=== PATIENT | male | born 1955 | race Caucasian/White ===

== ENCOUNTER 2017-11-06 08:01 | Day surgery (SDC) | payer OTHER ==
--- NOTE | 2017-11-06 07:07 | PDHPUP ---
History & Physical Update H&P update statement: This history and physical update is based on an assessment of the patient which was completed after admission or registration (within 24 hours), but prior to the surgery/procedure. H&P update: changes noted (large abrasion on lateral side, operative side noted after spinal ) H&P changes: Large abrasion on hip noted after spinal. case cancelled
[~2017-11-06 08:01] MED LIST: BUPI/epINEPH/KETOROLAC IU ONE; ROPIVACAINE 0.2% 80 MG, EPINEPHrine 0.2 MG, KETOROLAC TROMETHAMINE 30 MG in SYRINGE 0 ML IU ONE; TRANEXAMIC ACID 3,000 MG in NS (SYRINGE) 50 ML IRR ONE
[2017-11-06] MEDS ORDERED: TRANEXAMIC ACID 3,000 MG/50 ML BAG IRR ONE (08:02)
[2017-11-06] MEDS ORDERED: DEXAMETHASONE 4 MG/ML VIAL IVP ONE (08:46)
[2017-11-06] MEDS ORDERED: ACETAMINOPHEN 325 MG TAB PO ONE (08:46)
[2017-11-06] MEDS ORDERED: ceFAZolin 2 GM/SWFI 2 GM/20 ML SYR IVP ONE (08:46)
[2017-11-06] MEDS ORDERED: FAMOTIDINE 20 MG TAB PO ONE (08:46)
[2017-11-06] MEDS ORDERED: LR 1,000 ML IV ONE (08:47)
--- NOTE | 2017-11-06 08:50 | PDANEPAE ---
ANE History of Present Illness Healthy 62 yo male with R hip OA for R ELIAZAR. ANE Past Medical History - Cardiovascular History Hx Hypertension: No Hx Arrhythmias: No Hx Chest Pain: No Hx Coronary Artery / Peripheral Vascular Disease: No Hx CHF / Valvular Disease: No Hx Palpitations: No - Pulmonary History Hx COPD: No Hx Asthma/Reactive Airway Disease: No Hx Recent Upper Respiratory Infection: No Hx Oxygen in Use at Home: No Hx Sleep Apnea: No - Neurologic History Hx Cerebrovascular Accident: No Hx Seizures: No Hx Dementia: No - Endocrine History Hx Diabetes: No Hypothyroid: No Hyperthyroid: No Obesity: no - Renal History Hx Renal Disorders: No - Liver History Hx Hepatic Disorders: No - Neurological & Psychiatric Hx Hx Neurological and Psychiatric Disorders: No - Cancer History Hx Cancer: No - Congenital Disorder History Hx Congenital Disorders: No - GI History Hx Gastrointestinal Disorders: No - Other Health History Other Health History: none - Chronic Pain History Chronic Pain: No - Surgical History Prior Surgeries: stem cell injection. 2015 hammer toe, bone spur fixed ANE Review of Systems Review of Systems: - Exercise capacity METS (RN): 6 METS - Systems Constitutional: Reports: no symptoms Cardiac: Reports: no symptoms Respiratory: Reports: no symptoms ANE Patient History - Allergies Allergies/Adverse Reactions: No Known Allergies Allergy (Verified 10/18/17 11:04) - Home Medications Home Medications: NK [No Known Home Meds] 10/18/17 [Last Taken Unknown] - NPO status NPO Since - Liquids (Date): 11/06/17 NPO Since - Liquids (Time): 07:00 NPO Since - Solids (Date): 11/05/17 - Anes Hx Anes Hx: no prior problems - Smoking Hx Smoking Status: Never smoked Marijuana use: No - Alcohol Use Alcohol Use: Occasionally (6/week) - Family Anes Hx Family Anes Hx: neg - N/A Family Hx Anesthesia Complications: none ANE Labs/Vital Signs - Labs - CBC HGB: 16 HCT: 46 Platelet Count: 185 - Vital Signs Vital Signs: reviewed preoperatively; see RN documention for details Height: 182.88 cm Weight: 88.451 kg ANE Physical Exam - Airway Neck exam: FROM Mallampati Score: Class 2 Mouth exam: normal dental/mouth exam - Pulmonary Pulmonary: clear to auscultation - Cardiovascular Cardiovascular: irregularly irregular (irregularly irregular HR- placed on 3 lead EKG which revealed PVCs q 3-7 beats and occ PACs) - ASA Status ASA Status: II ANE Anesthesia Plan Anesthesia Plan: spinal
[2017-11-06] MEDS: LIDOCAINE 1% 2 ML INJ ID PRN ×2 (09:24→09:27)
[2017-11-06] MEDS ORDERED: LIDOCAINE 2% 5 ML SDV ONE (10:03)
[2017-11-06] MEDS ORDERED: PROPOFOL/EMULSION 500 MG/50 ML BOTTLE IV ONE (10:03)
[2017-11-06] MEDS ORDERED: fentaNYL 100 MCG/2 ML INJ ONE (10:03)
[2017-11-06] MEDS ORDERED: ACETAMINOPHEN 500 MG TAB PO PRN (10:39)
[2017-11-06] MEDS ORDERED: NALOXONE HCL 0.4 MG/ML INJ IVP PRN (10:39)
[2017-11-06] MEDS ORDERED: LR 500 ML IV PRN (10:39)
--- NOTE | 2017-11-06 10:41 | POSTANESTH ---
Post Anesthetic Evaluation Cardiovascular Status: Normal, Stable Respiratory Status: Normal, Stable Level of Consciousness/Mental Status: Can Participate in Eval, Alert and Oriented Pain Control: Adequate, Prn Tx Ordered Nausea/Vomiting Control: Adequate, Prn Tx Ordered Complications Possibly Related to Anesthesia: None Noted
[2017-11-06 16:07] VITALS: BP 123/83
== END 2017-11-06 16:05 | disposition home or self-care (01) ==
LOC: FSGY 08:01 → UNDOADMIN 08:01 → F3N 08:01 → EDSTATUS 12:15 → FSGY 16:05
PROVIDERS: ATTEND Orthopaedic Surgery
DX: M16.11 Unilateral primary osteoarthritis, right hip (principal); Z53.09 Procedure and treatment not carried out because of other contraindication
CPT/HCPCS: J0171; J0690; J1100; J1885; J2704; J3010

== ENCOUNTER 2017-12-04 06:03 | Inpatient (IN) | payer OTHER ==
[2017-12-04] MEDS ORDERED: LR 1,000 ML IV ONE (06:14)
[2017-12-04] MEDS ORDERED: LIDOCAINE 1% 2 ML INJ ID PRN (06:14)
--- NOTE | 2017-12-04 06:19 | PDANEPAE ---
ANE History of Present Illness 62 yo male with R hip OA for R ELIAZAR. ANE Past Medical History - Cardiovascular History Hx Hypertension: No Hx Arrhythmias: Yes Hx Chest Pain: No Hx Coronary Artery / Peripheral Vascular Disease: No Hx CHF / Valvular Disease: No Hx Palpitations: No Cardiovascular History Comment: multi PVCs and PACs noted last month when pt came for R ELIAZAR that was cancelled for scratches on operative side. - Pulmonary History Hx COPD: No Hx Asthma/Reactive Airway Disease: No Hx Recent Upper Respiratory Infection: No Hx Oxygen in Use at Home: No Hx Sleep Apnea: No Sleep Apnea Screening Result - Last Documented: Negative - Neurologic History Hx Cerebrovascular Accident: No Hx Seizures: No Hx Dementia: No - Endocrine History Hx Diabetes: No Hypothyroid: No Hyperthyroid: No Obesity: no - Renal History Hx Renal Disorders: No - Liver History Hx Hepatic Disorders: No - Neurological & Psychiatric Hx Hx Neurological and Psychiatric Disorders: No - Cancer History Hx Cancer: No - Congenital Disorder History Hx Congenital Disorders: No - GI History Hx Gastrointestinal Disorders: No - Other Health History Other Health History: OA-R HIP PAIN - Chronic Pain History Chronic Pain: Yes (R HIP) - Surgical History Prior Surgeries: stem cell injection -OA R HIP. 2015 hammer toe, bone spur fixed-BILAT ANE Review of Systems Review of Systems: - Exercise capacity METS (RN): 5 METS - Systems Constitutional: Reports: no symptoms Cardiac: Reports: no symptoms Respiratory: Reports: no symptoms Muscolosketal: Reports: joint pain ANE Patient History - Allergies Allergies/Adverse Reactions: No Known Allergies Allergy (Verified 11/25/17 14:01) - Home Medications Home Medications: celeCOXIB [Celebrex (*)] 200 mg PO DAILY PRN 12/02/17 [Last Taken Unknown] - NPO status NPO Status: no food or drink >8 hours - Anes Hx Anes Hx: no prior problems - Smoking Hx Smoking Status: Never smoked Marijuana use: No - Alcohol Use Alcohol Use: Occasionally (8/week) - Family Anes Hx Family Anes Hx: neg - N/A Family Hx Anesthesia Complications: none ANE Labs/Vital Signs - Labs - CBC HGB: 16 HCT: 46 Platelet Count: 185 - Vital Signs Vital Signs: reviewed preoperatively; see RN documention for details Height: 182.88 cm Weight: 87.543 kg ANE Physical Exam - Airway Neck exam: FROM Mallampati Score: Class 2 Mouth exam: normal dental/mouth exam - Pulmonary Pulmonary: no respiratory distress - Cardiovascular Cardiovascular: irregularly irregular (less irregular than last month, but still erratic with extra heart beats) - ASA Status ASA Status: II ANE Anesthesia Plan Anesthesia Plan: spinal
--- NOTE | 2017-12-04 07:16 | PDHPUP ---
History & Physical Update H&P update statement: This history and physical update is based on an assessment of the patient which was completed after admission or registration (within 24 hours), but prior to the surgery/procedure. H&P update: H&P reviewed & patient examined, no change in patient's condition since H&P completed
[2017-12-04] MEDS ORDERED: DEXAMETHASONE 4 MG/ML VIAL IVP ONE (07:27)
[2017-12-04] MEDS ORDERED: ACETAMINOPHEN 325 MG TAB PO ONE (07:27)
[2017-12-04] MEDS ORDERED: FAMOTIDINE 20 MG TAB PO ONE (07:27)
[2017-12-04] MEDS ORDERED: TRANEXAMIC ACID 3,000 MG in NS (SYRINGE) 50 ML IRR ONE (07:27)
[2017-12-04] MEDS ORDERED: ROPIVACAINE 0.2% 80 MG, EPINEPHrine 0.2 MG, KETOROLAC TROMETHAMINE 30 MG in SYRINGE 0 ML IU ONE (07:27)
[2017-12-04] MEDS ORDERED: ceFAZolin 2 GM/SWFI 2 GM/20 ML SYR IVP ONE (07:45)
[2017-12-04] MEDS ORDERED: DEXAMETHASONE 4 MG/ML VIAL ONE (08:02)
[2017-12-04] MEDS ORDERED: LIDOCAINE 2% 5 ML SDV ONE (08:02)
[2017-12-04] MEDS ORDERED: fentaNYL 100 MCG/2 ML INJ ONE (08:02)
[2017-12-04] MEDS ORDERED: PROPOFOL/EMULSION 500 MG/50 ML BOTTLE IV ONE (08:02)
[2017-12-04] MEDS ORDERED: PROPOFOL 200 MG/20 ML VIAL ONE (09:01)
[2017-12-04] MEDS ORDERED: BISACODYL 10 MG SUPP PR PRN (09:31)
[2017-12-04] MEDS ORDERED: PROMETHAZINE HCL 25 MG SUPPR PR PRN (09:31)
[2017-12-04] MEDS ORDERED: METOCLOPRAMIDE 10 MG/2 ML VIAL IVP PRN (09:31)
[2017-12-04] MEDS ORDERED: DIPHENOXYLATE/ATROPINE LOMOTIL 1 TAB PO PRN (09:31)
[2017-12-04] MEDS ORDERED: PROMETHAZINE HCL 25 MG/ML INJ IVP PRN ×2 (09:31→09:33)
[2017-12-04] MEDS ORDERED: MAGNESIUM HYDROXIDE 30 ML UDCUP PO PRN (09:31)
[2017-12-04] MEDS ORDERED: oxyCODONE IR 5 MG TAB PO PRN ×2 (09:31→09:33)
[2017-12-04] MEDS ORDERED: POLYETHYLENE GLYCOL 3350 17 GM PKT PO PRN (09:31)
[2017-12-04] MEDS ORDERED: CYCLOBENZAPRINE 10 MG TAB PO PRN (09:31)
[2017-12-04] MEDS ORDERED: diphenhydrAMINE 25 MG CAP PO PRN (09:31)
[2017-12-04] MEDS ORDERED: ONDANSETRON DISINTEGRATING 4 MG TAB PO PRN (09:31)
[2017-12-04] MEDS ORDERED: LACTULOSE 20 GM/30 ML UDCUP PO PRN (09:31)
[2017-12-04] MEDS ORDERED: TEMAZEPAM 15 MG CAP PO PRN (09:31)
[2017-12-04] MEDS ORDERED: ONDANSETRON 4 MG/2 ML VIAL IVP PRN ×2 (09:31→09:33)
--- NOTE | 2017-12-04 09:31 | POSTOPPROG ---
Post Op Note Date of Operation: 12/04/17 Surgeon: Gerard Fountain Heat [employer] Teacher: daisha fountain Anesthesiologist: dr. hoff Anesthesia: Spinal Pre-op Diagnosis: R hip OA Post-op Diagnosis: same Indication: right hip pain Procedure: R ELIAZAR ant approach Findings: severe hip OA Inf/Abcess present in the surg proc area at time of surgery?: No EBL: 100-500
[2017-12-04] MEDS ORDERED: NALOXONE HCL 0.4 MG/ML INJ IVP PRN (09:33)
[2017-12-04] MEDS ORDERED: fentaNYL 100 MCG/2 ML INJ IVP PRN (09:33)
[2017-12-04] MEDS ORDERED: ACETAMINOPHEN 500 MG TAB PO PRN (09:33)
--- NOTE | 2017-12-04 09:35 | POSTANESTH ---
Post Anesthetic Evaluation Cardiovascular Status: Normal, Stable Respiratory Status: Normal, Stable Level of Consciousness/Mental Status: Can Participate in Eval, Mildly Sleepy, Arousable Pain Control: Adequate, Prn Tx Ordered Nausea/Vomiting Control: Adequate, Prn Tx Ordered Complications Possibly Related to Anesthesia: None Noted (Pt can move bilateral feet, motor portion of SAB wearing off.)
[2017-12-04] MEDS ORDERED: LR 1,000 ML IV SCH (10:00)
--- NOTE | 2017-12-04 11:39 | PDMN ---
Medical Necessity Medical necessity: Pt meets INPT criteria per and [facility] S-560 [facility]
[2017-12-04] MEDS ORDERED: ACETAMINOPHEN 325 MG TAB PO SCH (12:00)
[2017-12-04] MEDS ORDERED: ceFAZolin 2 GM/DEXTROSE 100 ML IV SCH (14:00)
[2017-12-04 15:43] VITALS: BP 149/91
[2017-12-04] MEDS ORDERED: ceFAZolin 2 GM/SWFI 2 GM/20 ML SYR IVP SCH (16:30)
[2017-12-04] MEDS ORDERED: SENNOSIDES/DOCUSATE SODIUM TAB PO SCH (21:00)
[2017-12-04] MEDS ORDERED: FAMOTIDINE 20 MG TAB PO SCH (21:00)
[2017-12-04] MEDS ORDERED: ASPIRIN 81 MG CHEWABLE TAB PO SCH (21:00)
--- NOTE | 2017-12-05 09:17 | GDS ---
[f rep st] DISCHARGE SUMMARY ADMISSION DIAGNOSIS: Right hip osteoarthritis. DISCHARGE DIAGNOSIS: Right hip osteoarthritis. PROCEDURE: Right total hip arthroplasty. VTE PROPHYLAXIS: Recommend aspirin 81 mg twice daily for 4 weeks. BRIEF DESCRIPTION OF HOSPITAL STAY: Patient was admitted for an elective joint arthroplasty. The pa marlen tolerated the procedure well and has passed physical therapy. The patient was given appropriat e antibiotic prophylaxis and venous thromboembolism prophylaxis. The patient's pain was well control led on oral pain medication, patient was holding down food, and had urinated. Decision was made to d ischarge the patient. The patient was given post-operative prescriptions pre-operatively. PLAN: To follow up as scheduled in Dr. Barrow's office on December 26 at 2 p.m. /[id number]/MODL
--- NOTE | 2017-12-05 22:51 | GOP ---
[f rep st] OPERATIVE REPORT DATE OF OPERATION: 12/04/2017 SURGEON: Any Barrow MD PREOPERATIVE DIAGNOSIS: Right hip osteoarthritis. POSTOPERATIVE DIAGNOSIS: Right hip osteoarthritis. PROCEDURE PERFORMED: Right total hip arthroplasty with navigation. FINDINGS: ESTIMATED BLOOD LOSS: 200 cc. INDICATIONS: The patient has progressively worsening arthritis of the hip which has failed medical m anagement. The patient understands the treatment option including continued non-operative care and h as selected surgical intervention. The patient has decided to undergo total hip arthroplasty via the direct anterior approach understanding the risks of the procedure including, but not limited to, slim rovascular injury, infection, persistent pain, component wear and loosening, deep venous thrombosis, pulmonary embolism, limb length inequality (including dislocation), and intraoperative fractures. DESCRIPTION OF PROCEDURE: After proper identification of the patient including verification and anna ing the surgical site, the patient was brought to the operating room and placed in the supine positio n. All bony prominences were well padded. Anesthesia was induced without complication and intraveno us prophylactic antibiotics were administered prior to skin incision. After prepping and draping in the usual sterile fashion, attention was drawn to the contralateral pel vis for attachment of the computer navigation tracker. Three percutaneous incisions were made over t he iliac crest and the pelvic tracker was affixed using threaded 3.5 mm pins yielding excellent fixat ion. Using computer navigation the patient's leg length and topographical pelvic anatomy was registe red without complication. Attention was then drawn to surgical exposure of the hip. An incision was made with a #10 Bard Sabrina r blade starting 3 cm lateral and 3 cm distal to the anterior superior iliac spine measuring 8 cm to 10 cm and coursing distally toward the greater trochanter. The skin and subcutaneous tissues were di vided sharply down the fascia belinda. The fascia belinda was incised in line with the skin incision expos ing the underlying tensor fascia belinda muscle. This muscle was bluntly elevated from the fascia and t he first extracapsular Cobra retractor was placed laterally at the junction of the superior femoral n rustam and greater trochanter. The lateral femoral circumflex vessels were identified, cauterized and d ivided with the Aquamantys bipolar cautery. The deep investing fascia of the TFL was divided to allo w proper mobilization of the muscle preventing damage during retraction. The reflected head of the r ectus femoris muscle was elevated off the anterior hip capsule and a medial Cobra retractor was place d just proximal to the lesser trochanter. The anterior capsulotomy was made sharply from the superolateral acetabulum to the saddle junction of the superior femoral neck and greater trochanter, then coursing inferomedial towards the lesser troc hanter. The retractors were then placed in the intracapsular position for femoral neck osteotomy. C orresponding to preoperative templating the osteotomy was made with the oscillating saw protecting th e greater trochanter and soft tissues. The femoral head was removed from the acetabulum with a corks crew and confirmed to be severely arthritic with exposed bone, deformity and osteophytes. Similar fi nding were confirmed in the acetabulum. The Arch table extension was then placed in 40 degrees external rotation. Attention was then drawn t o the acetabular preparation. After placement of the anterior and posterior Cobra retractors outside the labrum and intrascapular the circumferential labrum was removed sharply. The foveal contents we re then removed and hemostasis obtained with cautery. The anatomy of the acetabulum was then registe red using computer navigation. The first reamer selected was sized using the removed femoral head. Reaming began with robotic jose t at 40 degrees of abduction and 20 degrees of anteversion using computer navigation. Reaming ceased 0 mm less than the definitive acetabular component. The final acetabular component was inserted usi ng the computer to achieve proper orientation yielding excellent purchase and stability in the acetab ulum. The final acetabular liner was then placed and its seating confirmed. Attention was then turned to the femur. The Arch table extension was placed in extension and adducti on delivering the osteotomized femoral neck into the wound. A 2-pronged femoral elevator was placed at the calcar and another at the tip of the greater trochanter. The posterolateral capsule was relea sed with cautery allowing mobilization of the femur lateral and anterior for preparation. The house painting instructor al rotators were visualized and preserved. A curette and rongeur were used to open the starting poin t for broaching. Serial broaching started with the #0 broach and ended with the broach that exhibited excellent fit in the proximal femur. A change in pitch during mallet strikes was accompanied by the inability to advance the broach any further. The trial reduction was performed and fluoroscopic chalo igation was utilized to check limb length. Adjustments were made to equalize limb length accordingly . After the final trials were accepted they were removed and the wound was copiously lavaged. The femo ral component was seated to the same depth as the final broach and the femoral head was impacted onto the clean trunnion. The hip was then reduced for the final time and once more fluoroscopic navigati on used to check that limb length equality was achieved. The wound was irrigated and closed in layers, the fascia belinda with 2-0 Quill, the subcutaneous tissue with a 2-0 Quill, and the skin with Dermabond, including the small incisions for computer navigation . Sterile dressings were applied. Final sharps and sponge counts were accurate. The patient was th en transferred to a hospital bed and brought to the recovery room in stable condition. IMPLANTS: Accolade II size 6 at 127, acetabular component Trident II 60 mm head, Biolox Delta 36 mm, +5. Liner is a Trident X3 36 mm. /[id number]/MODL
== END 2017-12-04 17:52 | disposition home or self-care (01) | DRG 470 ==
LOC: FSGY 06:03 → F3E 09:31 → F3N 09:55 → EDSTATUS 12:15
PROVIDERS: ADMIT Orthopaedic Surgery; ATTEND Orthopaedic Surgery
DX: M16.11 Unilateral primary osteoarthritis, right hip (principal)
CPT/HCPCS: 97161-GP; J0171; J0690; J1100; J1885; J2704; J2795; J3010

== ENCOUNTER 2017-12-23 12:37 | Inpatient (IN) | payer OTHER ==
[2017-12-23] MEDS ORDERED: LR 1,000 ML IV ONE (12:50)
[2017-12-23] MEDS ORDERED: LIDOCAINE 1% 2 ML INJ ID PRN (12:50)
[2017-12-23] MEDS ORDERED: ceFAZolin 2 GM/DEXTROSE 100 ML IV ONE (13:42)
[2017-12-23] MEDS ORDERED: ROPIVACAINE 0.2% 80 MG, EPINEPHrine 0.2 MG, KETOROLAC TROMETHAMINE 30 MG in SYRINGE 0 ML IU ONE (13:42)
[2017-12-23] MEDS ORDERED: DEXAMETHASONE 4 MG/ML VIAL IVP ONE (13:42)
[2017-12-23] MEDS ORDERED: FAMOTIDINE 20 MG TAB PO ONE (13:42)
[2017-12-23] MEDS ORDERED: MIDAZOLAM 2 MG/2 ML VIAL IVP ONE (14:20)
--- NOTE | 2017-12-23 14:21 | PDANEPAE ---
ANE History of Present Illness R hip I&D ANE Past Medical History - Cardiovascular History Hx Hypertension: No Hx Arrhythmias: Yes Hx Chest Pain: No Hx Coronary Artery / Peripheral Vascular Disease: No Hx CHF / Valvular Disease: No Hx Palpitations: No Cardiovascular History Comment: multi PVCs and PACs noted last month when pt came for R ELIAZAR that was cancelled for scratches on operative side. - Pulmonary History Hx COPD: No Hx Asthma/Reactive Airway Disease: No Hx Recent Upper Respiratory Infection: No Hx Oxygen in Use at Home: No Hx Sleep Apnea: No Sleep Apnea Screening Result - Last Documented: Negative - Neurologic History Hx Cerebrovascular Accident: No Hx Seizures: No Hx Dementia: No - Endocrine History Hx Diabetes: No - Renal History Hx Renal Disorders: No - Liver History Hx Hepatic Disorders: No - Neurological & Psychiatric Hx Hx Neurological and Psychiatric Disorders: No - Cancer History Hx Cancer: No - Congenital Disorder History Hx Congenital Disorders: No - GI History Hx Gastrointestinal Disorders: No - Other Health History Other Health History: OA-R HIP PAIN - Chronic Pain History Chronic Pain: Yes (R HIP) - Surgical History Prior Surgeries: stem cell injection -OA R HIP. 2015 hammer toe, bone spur fixed-BILAT ANE Review of Systems Review of systems is: negative Review of Systems: - Exercise capacity METS (RN): 4 METS ANE Patient History - Allergies Allergies/Adverse Reactions: No Known Allergies Allergy (Verified 11/25/17 14:01) - Home Medications Home medications: home medication list seen and reviewed Home Medications: celeCOXIB [Celebrex (*)] 200 mg PO DAILY PRN 12/02/17 [Last Taken Unknown] - NPO status NPO Since - Liquids (Date): 12/23/17 NPO Since - Liquids (Time): 11:40 NPO Since - Solids (Date): 12/23/17 NPO Since - Solids (Time): 06:30 - Anes Hx Anes Hx: no prior problems - Smoking Hx Smoking Status: Never smoked - Family Anes Hx Family Anes Hx: none Family Hx Anesthesia Complications: none ANE Labs/Vital Signs - Vital Signs Vital Signs: reviewed preoperatively; see RN documention for details Blood Pressure: 141/82 Heart Rate: 68 Respiratory Rate: 16 O2 Sat (%): 97 Height: 182.88 cm Weight: 87.543 kg ANE Physical Exam - Airway Neck exam: FROM Mallampati Score: Class 1 Mouth exam: normal dental/mouth exam - Pulmonary Pulmonary: no respiratory distress - Cardiovascular Cardiovascular: regular rate and rhythym - ASA Status ASA Status: II ANE Anesthesia Plan Anesthesia Plan: GA w LMA Urgent/Emergent Case: Anes clarke completed preop but documented later for safe timely pt care
[2017-12-23] MEDS ORDERED: ONDANSETRON 4 MG/2 ML VIAL ONE (14:32)
[2017-12-23] MEDS ORDERED: PROPOFOL 200 MG/20 ML VIAL ONE ×2 (14:32→14:50)
[2017-12-23] MEDS ORDERED: DEXAMETHASONE 4 MG/ML VIAL ONE (14:32)
[2017-12-23] MEDS ORDERED: fentaNYL 250 MCG/5 ML INJ ONE (14:32)
[2017-12-23] MEDS ORDERED: LIDOCAINE 2% 100 MG/5 ML SYR ONE (14:32)
[2017-12-23] MEDS ORDERED: ROCURONIUM 50 MG/5 ML VIAL ONE (14:32)
[2017-12-23] MEDS ORDERED: ACETAMINOPHEN 500 MG TAB PO PRN (15:11)
[2017-12-23] MEDS ORDERED: PROMETHAZINE HCL 25 MG/ML INJ IVP PRN ×2 (15:11→15:37)
[2017-12-23] MEDS ORDERED: LABETALOL HCL 5 MG/ML 20 ML MDV IVP PRN (15:11)
[2017-12-23] MEDS ORDERED: oxyCODONE IR 5 MG TAB PO PRN ×2 (15:11→15:37)
[2017-12-23] MEDS ORDERED: ONDANSETRON 4 MG/2 ML VIAL IVP PRN ×2 (15:11→15:37)
[2017-12-23] MEDS ORDERED: DEXAMETHASONE 4 MG/ML VIAL IVP PRN (15:11)
[2017-12-23] MEDS ORDERED: MEPERIDINE 25 MG/0.5 ML AMP IVP PRN (15:11)
[2017-12-23] MEDS ORDERED: fentaNYL 100 MCG/2 ML INJ IVP PRN (15:11)
[2017-12-23] MEDS ORDERED: HYDROCODONE/APAP 5/325 TAB PO PRN (15:11)
[2017-12-23] MEDS ORDERED: HYDROmorphONE/DILAUDID 1 MG/ML INJ IVP PRN (15:11)
[2017-12-23] MEDS ORDERED: NALOXONE HCL 0.4 MG/ML INJ IVP PRN (15:11)
--- NOTE | 2017-12-23 15:11 | POSTANESTH ---
Post Anesthetic Evaluation Cardiovascular Status: Normal, Stable, Similar to Pre-Op Cond Respiratory Status: Normal, Stable, Similar to Pre-op Cond. Level of Consciousness/Mental Status: Can Participate in Eval, Moderately Sleepy Pain Control: Adequate, Prn Tx Ordered Nausea/Vomiting Control: Adequate, Prn Tx Ordered Complications Possibly Related to Anesthesia: None Noted
[2017-12-23] MEDS ORDERED: BISACODYL 10 MG SUPP PR PRN (15:37)
[2017-12-23] MEDS ORDERED: diphenhydrAMINE 25 MG CAP PO PRN (15:37)
[2017-12-23] MEDS ORDERED: METOCLOPRAMIDE 10 MG/2 ML VIAL IVP PRN (15:37)
[2017-12-23] MEDS ORDERED: POLYETHYLENE GLYCOL 3350 17 GM PKT PO PRN (15:37)
[2017-12-23] MEDS ORDERED: MAGNESIUM HYDROXIDE 30 ML UDCUP PO PRN (15:37)
[2017-12-23] MEDS ORDERED: ONDANSETRON DISINTEGRATING 4 MG TAB PO PRN (15:37)
[2017-12-23] MEDS ORDERED: LACTULOSE 20 GM/30 ML UDCUP PO PRN (15:37)
[2017-12-23] MEDS ORDERED: CYCLOBENZAPRINE 10 MG TAB PO PRN (15:37)
[2017-12-23] MEDS ORDERED: DIPHENOXYLATE/ATROPINE LOMOTIL 1 TAB PO PRN (15:37)
[2017-12-23] MEDS ORDERED: PROMETHAZINE HCL 25 MG SUPPR PR PRN (15:37)
[2017-12-23] MEDS ORDERED: TEMAZEPAM 15 MG CAP PO PRN (15:37)
--- NOTE | 2017-12-23 15:37 | POSTOPPROG ---
Post Op Note Date of Operation: 12/23/17 Surgeon: Gerard Barrow Anesthesiologist: González Anesthesia: LMA Pre-op Diagnosis: R hip infection s/p ELIAZAR Post-op Diagnosis: R hip superficial infection s/p ELIAZAR Indication: infection Procedure: R hip Irrigation and debridement superficial, aspiration of hip joint Findings: superfical infection Inf/Abcess present in the surg proc area at time of surgery?: Yes Depth: Superfical (Skin SQ) EBL: 50-100
[2017-12-23] MEDS ORDERED: LR 1,000 ML IV SCH (16:00)
--- NOTE | 2017-12-23 16:26 | PDMN ---
Medical Necessity Medical necessity: [facility]: S560 hip arthroplasty [facility] INPT only R ELIAZAR
--- NOTE | 2017-12-23 16:27 | GOP ---
[f rep st] OPERATIVE REPORT DATE OF OPERATION: 12/23/2017 SURGEON: Any Barrow MD PREOPERATIVE DIAGNOSIS: Right hip infection. POSTOPERATIVE DIAGNOSIS: Right hip superficial infection. PROCEDURE PERFORMED: 1. Right hip superficial irrigation debridement. 2. Aspiration of right hip joint. INDICATIONS: Patient is a 62-year-old gentleman who 2-1/2 weeks ago underwent a right total hip arthroplasty after having pain and redness the last couple of days and then started drainage on the last night. Labs showed an elevated ESR, CRP, and a slight left shift for his white count which was 8. Decision was made to proceed with operative irrigation, debridement. Risks and benefits were explained to the patient, and informed consent was obtained. DESCRIPTION OF PROCEDURE: Patient identified in the preoperative holding area. His right lower extremity was marked as above and brought back to the operating room. After induction of anesthetic, the patient was positioned on the arch table. He was then prepped and draped in the usual sterile fashion. A time-out was taken, confirming the patient, laterality, procedures, allergies , antibiotic status, and implant availability. We held antibiotics until obtaining the cultures. We then started with an incision to the prior surgical area. There was some bloody fluid that was able to be expressed. A culture of this fluid was sent off for Gram stain and culture. We then explored the area. It was copiously irrigated. There was no communication noted from the fascia down into the joint. There was no rent in the fascia that could be identified. We then aspirated from the joint 60 cc of serosanguineous fluid that did not appear purulent from the deep space. We then again copiously irrigated the superficial area. The deep space fluid was sent off for cell count, Gram stain , and cultures. We made a small opening into the joint area. Again, no purulent fluid was noted. Copiously irrigated the deep space as well. We then closed the incision with a Prolene and placed a sterile dressing. The patient was awakened and brought to PACU in good condition with a well-perfused limb. The plan is for the patient to be weightbearing as tolerated. He will be admitted to the orthopedic service. He will be started on IV antibiotics overnight. /[id number]/MODL MTDD
[2017-12-23] MEDS ORDERED: VANCOMYCIN 1.25 GM in NS 250 ML IV ONE (16:30)
[2017-12-23] MEDS: ACETAMINOPHEN 325 MG TAB PO SCH (17:48)
[2017-12-23] MEDS: SENNOSIDES/DOCUSATE SODIUM TAB PO SCH (21:39)
[2017-12-23] MEDS: ASPIRIN 81 MG CHEWABLE TAB PO SCH (21:39)
[2017-12-23] MEDS: FAMOTIDINE 20 MG TAB PO SCH (21:39)
[2017-12-23] MEDS: ceFAZolin 2 GM/DEXTROSE 100 ML IV SCH (21:43)
[2017-12-24] MEDS: FAMOTIDINE 20 MG TAB PO SCH (21:00)
[2017-12-24] MEDS: ASPIRIN 81 MG CHEWABLE TAB PO SCH (21:00)
[2017-12-24] MEDS: SENNOSIDES/DOCUSATE SODIUM TAB PO SCH (21:00)
[2017-12-25] MEDS: ACETAMINOPHEN 325 MG TAB PO SCH ×4 (03:40→12:14)
[2017-12-25] MEDS: VANCOMYCIN 1.25 GM in NS 250 ML IV SCH ×3 (04:30→06:06)
[2017-12-25] MEDS: FAMOTIDINE 20 MG TAB PO SCH ×2 (06:04→07:56)
[2017-12-25] MEDS: ASPIRIN 81 MG CHEWABLE TAB PO SCH ×2 (06:04→07:56)
[2017-12-25] MEDS: SENNOSIDES/DOCUSATE SODIUM TAB PO SCH ×2 (06:05→07:55)
[2017-12-25] MEDS: ceFAZolin 2 GM/DEXTROSE 100 ML IV SCH (06:06)
[2017-12-25 11:28] VITALS: BP 130/86
--- NOTE | 2017-12-25 14:56 | POSTANESTH ---
[facility] Patient Name: AMARILYS NAVARRO Rpt#: [id number] Unit Number: [id number] Attending: Gerard Barrow MD Adm Date: 12/23/17 Post Anesthetic Evaluation Cardiovascular Status: Normal, Stable, Similar to Pre-Op Cond Respiratory Status: Normal, Stable, Similar to Pre-op Cond. Level of Consciousness/Mental Status: Can Participate in Eval, Moderately Sleepy Pain Control: Adequate, Prn Tx Ordered Nausea/Vomiting Control: Adequate, Prn Tx Ordered Complications Possibly Related to Anesthesia: None Noted Rafael Claudio MD 12/24/17 0739 <Electronically signed by Rafael Claudio MD> [id number] T: RENETTA 12/23/17 1511 CC:
[2017-12-25] MEDS ORDERED: PENICILLIN VK 500 MG TAB PO SCH (18:00)
== END 2017-12-25 17:02 | disposition home or self-care (01) | DRG 858 ==
LOC: FSGY 12:37 → F3N 15:37
PROVIDERS: ADMIT Orthopaedic Surgery; ATTEND Orthopaedic Surgery
PROC: 0S993ZX Drainage of Right Hip Joint, Percutaneous Approach, Diagnostic (ICD-10-PCS; principal; 2017-12-23 14:30)
PROC: 0JDC0ZZ Extraction of Pelvic Region Subcutaneous Tissue and Fascia, Open Approach (ICD-10-PCS; principal; 2017-12-23 14:30)
DX: T81.4XXA Infection following a procedure, initial encounter (principal)
CPT/HCPCS: 97161-GP; J0171; J0690; J1100; J1885; J2001; J2250; J2405; J2704; J2795; J3010; J3370